=== PATIENT | female | born 1935 | race Caucasian/White ===

== ENCOUNTER 2016-12-14 13:27 | Emergency (ER) | payer MEDICARE, OTHER ==
[~2016-12-14] VITALS: Ht 149.9 cm; Wt 72.6 kg
[2016-12-14] MEDS ORDERED: IV SET PRIMARY 1 EA INFUS.SET MC ONE ×2 (13:40→19:08)
[2016-12-14] MEDS ORDERED: IV NS 0.9% 500 ML IV ONE (13:40)
[2016-12-14] MEDS ORDERED: ONDANSETRON HCL/PF 4 MG/2 ML VIAL ONE (13:40)
[2016-12-14 13:57] LABS: BASOPHILS # (AUTO) 0.4 /CMM (0.0-0.2); DIFF TOTAL % 100 %; EOSINOPHILS % (AUTO) 0.3 % (0.0-6.0); HEMATOCRIT 37 % (33-45); HEMOGLOBIN 12.5 g/dL (11.5-14.8); LYMPHOCYTES # (AUTO) 1.4 /CMM (0.8-4.8); LYMPHOCYTES % (AUTO) 13.1 % (20.0-44.0); MEAN CORPUSCULAR HEMOGLOBIN 33 PG (26.0-33.0); MEAN CORPUSCULAR HGB CONC 34 g/dl (31.0-36.0); MEAN CORPUSCULAR VOLUME 96 fL (82-100); MONOCYTES # (AUTO) 0.9 /CMM (0.1-1.30); MONOCYTES % (AUTO) 8.1 % (2.0-12.0); NEUTROPHILS % (AUTO) 74.5 % (43.0-81.0); PLATELET COUNT (AUTO) 211 /CMM (150-450); RED BLOOD CELL COUNT(AUTO) 3.83 MIL/uL (4.0-5.2); WHITE BLOOD COUNT (AUTO) 10.7 K/uL (4.3-11.0)
[2016-12-14] MEDS ORDERED: IV NS 0.9% 500 ML BAG IV ONE (14:00)
[2016-12-14] MEDS ORDERED: ONDANSETRON HCL/PF 4 MG/2 ML VIAL IVP ONE (14:00)
[2016-12-14 14:07] LABS: INR 1.17 (0.87-1.13); PROTHROMBIN TIME 12.3 SECS (9.5-12.7)
[2016-12-14 14:13] LABS: ALANINE AMINOTRANSFERASE 74 U/L (12-78); ALBUMIN 2.8 g/dL (3.4-5.0); ANION GAP 13 (5-14); ASPARTATE AMINOTRANSFERASE 93 U/L (15-37); BILIRUBIN,TOTAL 1.6 mg/dL (0.2-1.0); CALCIUM, SERUM 8.8 mg/dL (8.5-10.1); CARBON DIOXIDE 29 mmol/L (21-32); CHLORIDE 103 mmol/L (98-107); CREATININE 1.1 mg/dL (0.6-1.3); GLUCOSE 127 mg/dL (74-106); INDIRECT BILIRUBIN 0.6 mg/dL (0.0-1.1); SODIUM SERUM 142 mmol/L (136-145); TOTAL PROTEIN, SERUM 6.4 g/dL (6.4-8.2); UREA NITROGEN, BLOOD 24 mg/dL (7-18)
[2016-12-14 14:14] LABS: TROPONIN I < 0.017 ng/mL (0.00-0.056)
[2016-12-14 14:15] LABS: POTASSIUM 2.5 mmol/L (3.5-5.1)
[2016-12-14 14:21] LABS: LACTIC ACID 1.7 mmol/L (0.4-2.0)
[2016-12-14] MEDS ORDERED: LIDOCAINE VISCOUS 2% UD 15 ML UDC MM ONE (15:00)
[2016-12-14] MEDS ORDERED: LIDOCAINE VISCOUS 2% UD 15 ML UDC ONE ×2 (15:10→15:11)
[2016-12-14] MEDS ORDERED: LORAZEPAM INJ 2 MG/ML VIAL ONE (15:12)
[2016-12-14] MEDS ORDERED: LORAZEPAM INJ 2 MG/ML VIAL IV ONE (15:30)
[2016-12-14 17:46] VITALS: BP 137/72
[2016-12-14] MEDS ORDERED: ESOM40CA PO (17:48)
[2016-12-14] MEDS ORDERED: GABA100C PO (17:48)
[2016-12-14] MEDS ORDERED: VALS1TAB54 PO (17:48)
[2016-12-14] MEDS ORDERED: ALPR0.5T PO (17:48)
[2016-12-14] MEDS ORDERED: ATEN50TA PO (17:48)
[2016-12-14] MEDS ORDERED: IV NS 0.9% 1,000 ML BAG IV ONE ×2 (18:00→19:30)
[2016-12-14] MEDS ORDERED: IV NS 0.9% 1,000 ML ONE (18:45)
[2016-12-14] MEDS ORDERED: IV SET PRIMARY PUMP SET 1 EA INFUS.SET MC ONE (19:08)
[2016-12-14] MEDS ORDERED: IV NS 0.9% 250 ML IV ONE (19:08)
[2016-12-14] MEDS ORDERED: POTASSIUM CL. PREMIX PERIPHER. 50 ML ONE (19:08)
[2016-12-14] MEDS ORDERED: POTASSIUM CL. PREMIX PERIPHER. 50 ML IV ONE (19:30)
== END 2016-12-14 19:53 | disposition short-term general hospital (02) ==
LOC: ER 13:30
DX: K56.60 Unspecified intestinal obstruction (principal); I10 Essential (primary) hypertension; E11.9 Type 2 diabetes mellitus without complications
CPT/HCPCS: 36415; 71010-TC; 80048-TC; 80076-TC; 83605-TC; 83690-TC; 84484-TC; 85025-TC; 85730-TC; 87081-TC; A4606; J2060; J2405; J3480; J7030; J7040; J7050; Z7610